=== PATIENT | male | born 1940 | race Caucasian/White ===

== ENCOUNTER 2017-05-21 15:15 | Outpatient (CLI) | payer OTHER ==
[2016-07-19 08:47] VITALS: BP 132/56
== END 2017-05-21 15:20 | disposition home or self-care (01) ==
LOC: POD 15:15
PROVIDERS: ATTEND Podiatrist
DX: B35.1 Tinea unguium (principal); M79.675 Pain in left toe(s); M79.674 Pain in right toe(s); I87.323 Chronic venous hypertension (idiopathic) with inflammation of bilateral lower extremity
CPT/HCPCS: G0463

== ENCOUNTER 2017-08-06 13:15 | Outpatient (CLI) | payer OTHER ==
[2016-07-19 08:47] VITALS: BP 132/56
== END 2017-08-06 13:16 ==
LOC: POD 13:15
PROVIDERS: ATTEND Podiatrist
DX: B35.1 Tinea unguium (principal); M79.674 Pain in right toe(s); M79.675 Pain in left toe(s)
CPT/HCPCS: 11721; G0463

== ENCOUNTER 2017-11-05 13:08 | Outpatient (CLI) | payer OTHER ==
[2016-07-19 08:47] VITALS: BP 132/56
== END 2017-11-05 13:10 ==
LOC: POD 13:08
PROVIDERS: ATTEND Podiatrist
DX: B35.1 Tinea unguium (principal); M79.674 Pain in right toe(s); M79.675 Pain in left toe(s)
CPT/HCPCS: 11721; G0463

== ENCOUNTER 2018-02-18 14:10 | Outpatient (CLI) | payer OTHER ==
[2016-07-19 08:47] VITALS: BP 132/56
[2018-02-18 14:31] LABS: BASOPHILS % 0.4 (0.0-1.5); EOSINOPHILS % 1.1 % (0.0-6.8); MEAN CORPUSCULAR HEMOGLOBIN 33.8 pg (28.0-34.0); MEAN CORPUSCULAR VOLUME 94.8 fl (80.0-100.0); MONOCYTES % 3.2 % (0.0-11.0); NEUTROPHILS # 11.2 # k/uL (1.4-7.7)
[2018-02-18 14:58] LABS: eGFR (African) > 60; eGFR (Non-African) 52
--- NOTE | 2018-02-18 15:32 | Diagnostic Imaging Report ---
RAFAELA REMY [facility] [address] [facility] [address] [address] Report Submission Date: Feb 18, 2018 2:53:35 PM CDT Patient Study Name: JELANI HUYNH Date: Feb 18, 2018 2:30:59 PM CDT Modality Type: DX Gender: M Description: ABDOMEN : 40 Institution: [facility] Physician: RAFAELA REMY Examination: Obstruction series History: VOMITING AND DIARRHEA X 5-6 DAYS 2V WITH 3 IMAGES (Hx) Findings: 3 views obtained of the abdomen. No abnormal dilation of the large or small bowel. Air and stool throughout the large bowel. No suspicious calcification projecting over the renal fossa or the lower pelvic region. Pelvic phleboliths. Surgical clips right upper quadrant. Articular degenerative changes. Left hip fixation hardware. Impression: No obstruction. No suspicious calcifications by plain film sensitivity. Electronically signed on Feb 18, 2018 2:53:35 PM CDT by: Zach YEUNG
== END 2018-02-18 14:11 ==
LOC: RAD 14:10
PROVIDERS: ATTEND Physician Assistant
DX: R53.1 Weakness (principal); R11.10 Vomiting, unspecified
CPT/HCPCS: 36415; 74019; 80053; 85025

== ENCOUNTER 2018-02-18 16:06 | Inpatient (IN) | payer OTHER ==
--- NOTE | 2018-02-18 17:10 | History and Physical Report ---
History of Present Illnes - History of Present Illness Reason for Visit: hypokalemia, weakness, diarrhea History of Present Illness: Seferino is a 77yo male with a history of multiple medical problems, including heart disease and gout. He presented to outpatient clinic after feeling sick for 6 days now. It started off as constipation, for 6-7 days he had no bowel movement. He took multiple stool softeners during that time. For the last 5 days hasn't been able to eat much. His appetite is down, but he also either vomits or has diarrhea after eating. He is able to tolerate liquids ok, but today has only had a pepsi to drink. This morning he had 2 loose stools that looked mucousy. His stomach really doesn't hurt, just feels like he is on a boat. He felt feverish yesterday and today and had been sweating some. He also feels very weak and it takes a lot of effort for him even to stand up from sitting. He lives in senior housing. He isn't aware of any contacts that are going through something similar or any known exposure to something. Labwork showed potassium level of 2.9, Runway Model 1.4, GRF 52, WBC 15.1. Decision was made to admit him to the hospital for fluids and potassium replacement. We will do further investigation of the leukocytosis. - Past Medical History Cardiac: CAD, HTN, Hyperlipidemia (all the) Musculoskeletal: Osteoarthritis Rheumatologic: Gout - Past Surgical History Past Surgical History: Cholecystectomy, Total Hip Replacement (left), Total Knee Replacement (bilateral), Tonsillectomy - Past Family History Father Family History: Hyperlipidemia, (59yo COPD), Other (emphysema) Mother Family History: Other (dementia, COPD, HF) - Past Social History Smoke: No Occupation: retired Alcohol: None Drugs: None Lives: Alone Domestic Violence: Negative - Health Maintenance Health Maintenance: Cholesterol. denies: Tetanus (>10 years) Influenza Vaccine: No Pneumonia Vaccine: No Resuscitation Status: Full code Review of Systems - Review of Systems Constitutional: Weakness, Malaise. negative: Fever Eyes: negative: pain, vision change ENT: negative: Ear Pain, Nose Discharge Respiratory: negative: Cough, Shortness of Breath Cardiovascular: negative: Chest Pain, Edema Gastrointestinal: Nausea, Vomiting, Diarrhea, Constipation (several days ago). negative: Abdominal Pain Genitourinary: Frequency. negative: Dysuria Musculoskeletal: negative: Shoulder Pain, Leg Pain Skin: Other (sores on panus and groin) Neurological: Weakness. negative: Seizures - Medications/Allergies Allergies/Adverse Reactions: Allergies Allergy/AdvReac Type Severity Reaction Status Date / Time No Known Allergies Allergy Verified 06/21/16 13:09 Exam - Exam General: Alert, Oriented to Person, Oriented to Place, Oriented to Time, Cooperative HEENT: Atraumatic, EOMI, Mouth Mucous membr. moist/[place] Neck: No: Rigidity, Lymphadenopathy Lungs: Clear to auscultation, Speaks full Sentences. No: Respiratory Distress, Wheezes, Stridor Cardiovascular: No murmurs, Tachycardia Abdomen: Normal bowel sounds, Soft, No tenderness. No: Distended, Rigid Integumentary: Other (severe skin break down of panus and groin, R>L, erythematous with yeast like appearance and odor) Extremities: No cyanosis, No edema, No tenderness/swelling Neurological: Cranial nerves 3-12 NL, Generalized Weakness Psych/Mental Status: Mood NL, Appropriate Affect - Laboratory Results Laboratory Results: Potassium 2.9 Runway Model 1.4 BUN 18 GFR 52 AST/ALT 50/56 Alk Phos 202 WBC 15.1 Neut 11.2 H/H 13.8/38.7 Abd Xray did not indicate any obstruction Assessment/Plan - Assessment/Plan (1) Hypokalemia Status: Acute Current Visit: Yes Assessment: Potassium 2.9 Plan: Fluid replacement with potassium (2) Generalized weakness Status: Acute Current Visit: Yes Plan: PT consult in a.m. (3) Diarrhea Status: Acute Current Visit: Yes Plan: Monitor Loperamide PRN (4) Leukocytosis Status: Acute Current Visit: Yes Assessment: WBC 15.1 with bands Plan: Chest Xray and UA (5) Skin breakdown Status: Acute Current Visit: Yes Assessment: Looks and has odor of yeast Plan: Will treat with nystatin powder and keep dry, monitor VTE Assessment - RISK FACTOR SCORE VTE RISK FACTOR SCORES: AGE OVER 60 YEARS, ACUTE INFECTION OTHER THEN SEPSIS, OBESITY - RISK VTE HIGH RISK: SCORE OF 3-4 (RISK PROXIMAL DVT 4-8%) PROPHYLAXIS NEEDED
[2018-02-18] MEDS ORDERED: LOPERAMIDE HCL 2 MG CAPSULE PO PRN (17:54)
[2018-02-18] MEDS ORDERED: ONDANSETRON HCL 4 MG TAB.RAPDIS PO PRN (17:54)
[2018-02-18] MEDS ORDERED: POTASSIUM CHLORIDE 40 MEQ/NS 1,000 ML IV SCH ×2 (18:00→18:22)
[2018-02-18] MEDS ORDERED: POTASSIUM CHLORIDE 40 MEQ/NS 1,000 ML IV ONE (18:22)
[2018-02-18] MEDS: METOPROLOL TARTRATE 25 MG TABLET PO SCH ×2 (18:28→19:58)
[2018-02-18] MEDS: POTASSIUM CHLORIDE 40 MEQ/NS 1,000 ML IV SCH (18:33)
[2018-02-18 18:51] VITALS: BMI 36.6
[2018-02-18] MEDS ORDERED: NYSTATIN POWDER BOTTLE TP SCH (19:00)
[2018-02-18] MEDS: ENOXAPARIN SODIUM 30 MG/0.3 ML DISP.SYRIN SQ SCH (19:00)
[2018-02-18] MEDS: OMEPRAZOLE 20 MG CAPSULE.DR PO SCH (19:00)
[2018-02-19] MEDS ORDERED: ASPIRIN EC 81 MG TABLET.DR ONE (02:13)
[2018-02-19] MEDS: POTASSIUM CHLORIDE 40 MEQ/NS 1,000 ML IV SCH ×2 (02:23→14:28)
--- NOTE | 2018-02-19 05:27 | Diagnostic Imaging Report ---
[facility] [address] [facility].[address] [address] Report Submission Date: Feb 18, 2018 7:42:51 PM CDT Patient Study Name: JELANI HUYNH Date: Feb 18, 2018 6:38:44 PM CDT Modality Type: DX Gender: M Description: CHEST : 40 Institution: [facility] Physician: [facility] Chest, PA and lateral HISTORY Leukocytosis. FINDINGS Sternal wires indicate prior cardiac surgery. Prosthetic heart valve is present. There is no infiltrate, effusion or pneumothorax. Heart size, mediastinum and pulmonary vascularity are normal. There is calcification in the thoracic aorta. IMPRESSION No active disease. Electronically signed on Feb 18, 2018 7:42:51 PM CDT by: Arnold YEUNG
[2018-02-19] MEDS: OMEPRAZOLE 20 MG CAPSULE.DR PO SCH (05:53)
--- NOTE | 2018-02-19 08:45 | Inpatient Progress Note ---
Subjective - Required Recertification Statement I anticipate X number of days because-include discharge plan: 1 - Review of Systems Events since last encounter: None Subjective: Seferino reports feeling better today regarding his nausea and diarrhea. He ate dinner last night and a little breakfast this morning. He seems more confident in his ability to keep the food down. Mostly now he just feels weak. His cane has been switched for a walker and he is more steady on that. PT eval and repeat labs are both pending. Chest XR done yesterday evening was normal. He is scheduled to have a routine echo done by his community health education coordinator, Dr. Long, at [facility] on Saturday. General: Other (weakness). Denies: Chills HEENT: Denies: Head Aches, Visual Changes Pulmonary: Denies: Dyspnea, Cough Cardiovascular: Denies: Chest Pain, Edema Gastrointestinal: Nausea (improved), Diarrhea (improved). Denies: Vomiting, Abdominal Pain Genitourinary: Frequency, Incontinence Neurological: Weakness. Denies: Change in Speech Objective - Exam Vitals and I&O: Vital Signs Temp 97.6 F 02/19/18 06:00 Pulse 96 H 02/19/18 06:00 Resp 20 02/19/18 06:00 BP 131/66 02/19/18 06:00 Pulse Ox 95 02/19/18 06:00 Intake & Output 02/18/18 02/18/18 02/19/18 11:59 23:59 11:59 Intake Total 240 140 Balance 240 140 Weight 115.747 kg Intake: Oral 240 140 Other: Voiding Method Urinal # Voids 0 General: Alert, Oriented to Person, Oriented to Place, Oriented to Time, Cooperative, No acute distress HEENT: Atraumatic, EOMI, Mouth Mucous membr. moist/[place] Lungs: Clear to auscultation, Normal air movement, Speaks full Sentences. No: Respiratory Distress, Wheezes Cardiovascular: No murmurs, Tachycardia (intermittent) Abdomen: Normal bowel sounds, Soft, No tenderness. No: Distended, Rigid Skin: Other (skin breakdown under panus and in groin, R>L, with probable yeast component) Neurological: Normal speech, Normal tone, Generalized Weakness Psych/Mental Status: Mental status NL, Appropriate Affect Assessment/Plan - Assessment/Plan (1) Hypokalemia Status: Acute Current Visit: Yes Assessment: Labs pending Plan: Continue replacement for now (2) Generalized weakness Status: Acute Current Visit: Yes Assessment: stable Plan: Monitor and await PT consult (3) Diarrhea Status: Acute Current Visit: Yes Assessment: improved Plan: Monitor and treat with loperamide PRN (4) Leukocytosis Status: Acute Current Visit: Yes Assessment: Chest XR normal, UA pending (5) Skin breakdown Status: Acute Current Visit: Yes Assessment: stable Plan: treat with nystatin powder and keep dry with pillow cases or something similar
[2018-02-19] MEDS: ALLOPURINOL 100 MG TABLET PO SCH (08:46)
[2018-02-19] MEDS: ASPIRIN 81 MG CHEW TAB PO SCH (08:46)
[2018-02-19] MEDS: METOPROLOL TARTRATE 25 MG TABLET PO SCH ×2 (08:46→20:38)
[2018-02-19 10:07] LABS: BASOPHILS % 0.4 (0.0-1.5); EOSINOPHILS % 1.1 % (0.0-6.8); MEAN CORPUSCULAR HEMOGLOBIN 34.4 pg (28.0-34.0); MONOCYTES % 2.7 % (0.0-11.0); NEUTROPHILS # 9.3 # k/uL (1.4-7.7)
[2018-02-19 10:17] LABS: eGFR (African) > 60; eGFR (Non-African) 57
[2018-02-19] MEDS: NYSTATIN POWDER BOTTLE TP SCH ×3 (13:47→20:39)
[2018-02-19 16:07] LABS: APPEARANCE,URINE Clear (CLEAR); COLOR,URINE Yellow (YELLOW); OCCULT BLOOD,URINE Negative (NEGATIVE); PH URINE 6.5 (5.0 - 8.0); UROBILINOGEN URINE 0.2 Eu (0.2-1.0)
[2018-02-19] MEDS: ENOXAPARIN SODIUM 30 MG/0.3 ML DISP.SYRIN SQ SCH (19:44)
[2018-02-20] MEDS: OMEPRAZOLE 20 MG CAPSULE.DR PO SCH (06:12)
[2018-02-20] MEDS ORDERED: ACETAMINOPHEN 325 MG TABLET PO PRN (08:56)
[2018-02-20] MEDS: ASPIRIN 81 MG CHEW TAB PO SCH (09:05)
[2018-02-20] MEDS: ALLOPURINOL 100 MG TABLET PO SCH (09:05)
[2018-02-20] MEDS: NYSTATIN POWDER BOTTLE TP SCH (09:05)
[2018-02-20] MEDS: METOPROLOL TARTRATE 25 MG TABLET PO SCH (09:05)
[2018-02-20 10:12] LABS: eGFR (African) > 60; eGFR (Non-African) > 60
[2018-02-20] MEDS ORDERED: POTASSIUM CHLORIDE 20 MEQ TABLET.ER PO ONE (11:06)
[2018-02-20] MEDS ORDERED: POTASSIUM CHLORIDE 20 MEQ TABLET.ER ONE (11:39)
--- NOTE | 2018-02-20 12:04 | Discharge Summary ---
Discharge Summary - Discharge Sumary History of Present Illness: Seferino is a 77yo male with a history of multiple medical problems, including heart disease and gout. He presented to outpatient clinic after feeling sick for 6 days now. It started off as constipation, for 6-7 days he had no bowel movement. He took multiple stool softeners during that time. For the last 5 days hasn't been able to eat much. His appetite is down, but he also either vomits or has diarrhea after eating. He is able to tolerate liquids ok, but today has only had a pepsi to drink. This morning he had 2 loose stools that looked mucousy. His stomach really doesn't hurt, just feels like he is on a boat. He felt feverish yesterday and today and had been sweating some. He also feels very weak and it takes a lot of effort for him even to stand up from sitting. He lives in senior housing. He isn't aware of any contacts that are going through something similar or any known exposure to something. Labwork showed potassium level of 2.9, Death Surveys Coder 1.4, GRF 52, WBC 15.1. Decision was made to admit him to the hospital for fluids and potassium replacement. We will do further investigation of the leukocytosis. Condition at Discharge: Stable Home Medications: Ambulatory Orders Medication Instructions Recorded Allopurinol [Zyloprim] 300 mg PO DAILY 06/26/13 Aspirin [Adult Low Dose Aspirin EC] 81 mg PO DAILY 07/11/16 Atorvastatin Calcium 40 mg PO HS 07/11/16 Omeprazole [Prilosec] 1 cap PO DAILY 07/11/16 Metoprolol Tartrate [Lopressor] 25 mg PO BID u2 02/18/18 Nystatin Cream [Mycostatin] 1 appl TP TID #60 tube 02/20/18 Consultations this Visit: None Procedures this Visit: None Allergies/Adverse Reactions: Allergies Allergy/AdvReac Type Severity Reaction Status Date / Time No Known Allergies Allergy Verified 06/21/16 13:09 Discharge Summary: Patient was admitted from clinic with profound weakness following a diarrheal illness - found to be hypokalemia with elevated WBC thought to be due to dehydration. WBC back to normal by the next day. Potassium replaced as needed. Patient ended up pulling 4 IV"s out. Staff took him to the shower to clean up his yeasty pannus infection. Nystatin cream started. This was much improved. I discussed with him that he needs to work on how he urinates so he isn't always wet in that area. Offered SNF therapy but he wanted to go home on home health. A1C elevated 6.7 with no h/o DM. Patient reports drinking a lot of soda. I asked him to stop that and cut out carbs. He will be d/c'd home with home health and on nystatin cream. Hospital Course: Discharge Dx: Weakness. Yeast infection of pannus. Hypokalemia. DM - new onset. Disposition - home with home health
[2018-02-20 13:49] VITALS: BP 154/73
== END 2018-02-20 13:45 | disposition home health service (06) | DRG 641 ==
LOC: SOUTH 16:06
PROVIDERS: ADMIT Physician Assistant; ATTEND Physician Assistant
DX: E87.6 Hypokalemia (principal); B37.89 Other sites of candidiasis; R19.7 Diarrhea, unspecified; D72.829 Elevated white blood cell count, unspecified; R53.1 Weakness; I25.10 Atherosclerotic heart disease of native coronary artery without angina pectoris; I10 Essential (primary) hypertension; E78.5 Hyperlipidemia, unspecified
CPT/HCPCS: 36415; 71046; 80053; 81002; 83036; 85025; 97530; A9270; J1650; J3480; 99222; 99232; 99238; S1016

== ENCOUNTER 2018-03-04 12:38 | Outpatient (CLI) | payer OTHER | END 2018-03-04 12:40 | LOC: POD 12:38 | PROVIDERS: ATTEND Podiatrist | DX: B35.1 Tinea unguium (principal); M79.674 Pain in right toe(s); M79.675 Pain in left toe(s) | CPT/HCPCS: 11721; G0463 ==

== ENCOUNTER 2018-04-02 14:07 | Outpatient (CLI) | payer OTHER, BC ==
[2018-04-02 14:25] LABS: eGFR (African) > 60; eGFR (Non-African) > 60
== END 2018-04-02 14:10 ==
LOC: LABRHC 14:07
PROVIDERS: ATTEND Family Medicine
DX: I50.9 Heart failure, unspecified (principal); R73.9 Hyperglycemia, unspecified; E78.5 Hyperlipidemia, unspecified; E79.0 Hyperuricemia without signs of inflammatory arthritis and tophaceous disease
CPT/HCPCS: 80053; 80061; 83036; 84550

== ENCOUNTER 2019-09-15 11:32 | Outpatient (CLI) | payer OTHER ==
[2019-09-15 12:19] LABS: BASOPHILS % 0.6 % (0.0-1.5); NEUTROPHILS # 7.7 # k/uL (1.4-7.7)
[2019-09-15 12:20] LABS: BASOPHILS % 1 % (0-2); SEGMENTED NEUTROPHILS % 60 % (39-79)
== END 2019-09-15 11:37 | disposition home or self-care (01) ==
LOC: LAB 11:32
PROVIDERS: ATTEND Nurse Practitioner Family
DX: D72.829 Elevated white blood cell count, unspecified (principal)
CPT/HCPCS: 36415; 85025